=== PATIENT | female | born 1990 | race Caucasian/White ===

== ENCOUNTER 2023-06-01 23:23 | Emergency (ER) | payer OTHER ==
[~2023-06-01] VITALS: Ht 172.7 cm; Wt 81.6 kg
[2023-06-01] MEDS ORDERED: LIDOCAINE 1% INJ 50 ML MDV IJ ONE (23:30)
[2023-06-01] MEDS ORDERED: TDAP [DIPH/PERTUSSIS/TET] 0.5 ML VIAL IM ONE (23:30)
[2023-06-02] MEDS ORDERED: AMOX-430 PO
[2023-06-02] MEDS ORDERED: LIDOCAINE HCL/PF 1% 30 ML SDV ONE (00:11)
[2023-06-02] MEDS ORDERED: TDAP [DIPH/PERTUSSIS/TET] 0.5 ML VIAL IM ONE ×2 (00:12)
[2023-06-02] MEDS ORDERED: AMOX/CLAVULANATE 875 MG TABLET ONE (00:27)
[2023-06-02] MEDS ORDERED: AMOX/CLAVULANATE 875 MG TABLET PO ONE (00:30)
[2023-06-02 00:41] VITALS: BP 114/71; TEMP 98.1; O2SAT 98
== END 2023-06-02 00:42 | disposition home or self-care (01) ==
LOC: ER 23:26
DX: S61.211A Laceration without foreign body of left index finger without damage to nail, initial encounter (principal); S60.470A Other superficial bite of right index finger, initial encounter; W54.0XXA Bitten by dog, initial encounter; Y93.89 Activity, other specified; Y92.89 Other specified places as the place of occurrence of the external cause; Y99.8 Other external cause status
CPT/HCPCS: 99283; 90471; 90715; J3490